=== PATIENT | female | born 1970 | race Two or more races ===

== ENCOUNTER → 2024-04-04 | Outpatient (CLI) | payer OTHER, SELFPAY ==
--- NOTE | 2024-04-04 | XR_ITS ---
Examination: Sinus series 4 views TECHNIQUE: Carine Andre lateral submentovertex sinus series 4 views Exam date and time: April 04, 2024 1259 hours INDICATIONS: Sinus pressure and pain months FINDINGS: 26 mm retention cyst left maxillary antrum Opacity in the frontal ethmoid air cells No fluid levels No cortical bone destruction Deviation nasal septum to the right 5 mm IMPRESSION: Frontal ethmoid and maxillary antral chronic sinusitis 26 mm retention cyst left maxillary antrum
--- NOTE | 2024-04-04 | XR_ITS ---
Examination: PA lateral chest 2 views TECHNIQUE: Upright PA lateral chest 2 views Exam date and time: April 04, 2024 1247 hours INDICATIONS: Coughing months FINDINGS: Normal heart size Lungs are clear. The osseous structures are intact IMPRESSION: No active disease
--- NOTE | 2024-04-04 | XR_ITS ---
Examination: Skull series 4 views TECHNIQUE: Carine, right lateral, left lateral water skull series 4 views Exam date and time: April 04, 2024 1241 hours INDICATION: Chronic facial pain FINDINGS: Opacity in the frontal ethmoid air cells No retention cysts No fluid levels Sella turcica unremarkable Cranial vault intact IMPRESSION: Chronic frontal ethmoid sinusitis
--- NOTE | 2024-04-04 | XR_ITS ---
EXAMINATION: Cervical spine, 5 views Technique: Cervical spine AP, AP odontoid, lateral, bilateral obliques, 5 views Exam date and time: April 04, 2024 1241 hours INDICATIONS: Neck pain years. FINDINGS: Straightening normal cervical lordosis No cervical fracture Mild to moderate degenerative disc disease C5-C6, C6-C7 with mild bilateral neural foraminal stenosis at these levels Cervical thoracic levoscoliosis 10 degrees IMPRESSION: Mild to moderate degenerative disc disease C5-C6, C6-C7
--- NOTE | 2024-04-04 11:45 | XR_ITS ---
Examination: Screening digital mammography, bilateral Computer aided detection 3-D breast Tomosynthesis, bilateral Date and time of exam: April 04, 2024 1153 hours Compared to mammograms dating to June 18, 2016 Indication: Screening Technique: Nonmagnified MLO, CC views of the breasts to been obtained, reconstructed from 3-D Tomosynthesis images. R2 computer aided detection program utilized for evaluation of suspicious masses and/or abnormal calcifications. 3-D Tomosynthesis images obtained. Findings: Scattered areas of fibroglandular density Benign calcifications No interval suspicious masses Impression: BI-RADS category II: Benign Findings. Recommend 1 year follow-up mammogram.
== END | disposition home or self-care (01) ==
LOC: CDIM 11:44
PROVIDERS: PCP Internal Medicine; Referring Provider Internal Medicine; Visit Provider Specialist
DX: Z12.31 Encounter for screening mammogram for malignant neoplasm of breast (principal); R92.323 Mammographic fibroglandular density, bilateral breasts; R92.1 Mammographic calcification found on diagnostic imaging of breast; R05.9 Cough, unspecified; M50.322 Other cervical disc degeneration at C5-C6 level; J32.8 Other chronic sinusitis; M27.40 Unspecified cyst of jaw; J32.2 Chronic ethmoidal sinusitis
CPT/HCPCS: 70220; 70260; 71046; 72050; 77063; 77067

== ENCOUNTER 2024-11-04 00:01 | Emergency (ER) | payer OTHER, SELFPAY ==
[2024-11-04 00:02] VITALS: BMI 39.8
[2024-11-04 00:28] VITALS: BP 176/100; PULSE 89; RESP 20; TEMP 37.1; O2SAT 95
--- NOTE | 2024-11-04 00:47 | EDNOTE_ITS ---
ED Skin Abcess FB-RME/HPI General Chief complaint: Skin/Abscess/Foreign Body Stated complaint: SPIDER BITE TO RIGHT LEG Time Seen by Provider: 11/04/24 00:47 Arrival date/time: 11/04/24 00:01 RME / HPI RME / HPI narrative: 54-year-old female with a past medical history of hypertension presents to the ED with 2 spider bite wounds to her right lower extremity. She saw 2 different spiders in a hotel room she was staying in the last few days. She woke up with red spots on her right leg. She denies fever or chills, nausea or vomiting. She states the lesions are itchy with mild burning. She has been placing mupirocin ointment on the lesions. The first lesion is on the posterolateral knee and the second lesion is on the posterior thigh. Related Data Previous Rx's ?Medication ?Instructions ?Recorded mupirocin 2 % topical ointment 1 applic topical BID #2 2 grams 10/23/21 triamcinolone acetonide 0.1 % 1 applic topical TID #15 grams 11/04/24 topical cream Allergies Allergy/AdvReac Type Severity Reaction Status Date / Time hydrochlorothiazide Allergy Mild Itching Verified 10/23/21 21:31 losartan Allergy Mild Itching Verified 10/23/21 21:31 Course Vital Signs Vital signs: Vital Signs Temperature 98.7 F 11/04/24 00:28 Pulse Rate 89 11/04/24 00:28 Respiratory Rate 20 11/04/24 00:28 Blood Pressure 176/100 H 11/04/24 00:28 Pulse Oximetry (%) 95 11/04/24 00:28 Oxygen Delivery Method Room Air 11/04/24 00:28 Discharge Plan Plan Patient Disposition: HOME (Self Care) Discharge Disposition comment: Stable Prescriptions/Referrals Prescriptions/Med Rec: New triamcinolone acetonide 0.1 % cream 1 applic topical TID Qty: 15 0RF Rx Instructions: Apply sparingly to the lesions No Action mupirocin 2 % ointment 1 applic topical BID Qty: 22 0RF Problem List Clinical Impression: Insect bites Patient/Caregiver Discharge Instructions Education Materials: ED Insect Sting, Local Reaction Additional Instructions: There is no evidence of infection at the bite sites. Apply the steroid cream to reduce the itching and inflammation. Watch for increasing redness, swelling or pain as well as any drainage from the wounds. Follow-up with your primary care physician in 24 to 48 hours. Return to the ED for any new or worsening symptoms. Print Language: Luxem[place]ish Stand Alone Forms: Feli Award Info., Patient Portal Info Letter PA/WELLNESS PROGRAM ADMINISTRATOR Supervising Physician PA/WELLNESS PROGRAM ADMINISTRATOR Supervising Physician: Dr. Linder
== END 2024-11-04 01:16 | disposition home or self-care (01) ==
LOC: SERX 01:20
PROVIDERS: Emergency Provider Emergency Medicine; PCP Internal Medicine
DX: S80.861A Insect bite (nonvenomous), right lower leg, initial encounter (principal); W57.XXXA Bitten or stung by nonvenomous insect and other nonvenomous arthropods, initial encounter
CPT/HCPCS: 99282